=== PATIENT | female | born 2005 | race Caucasian/White ===

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

== ENCOUNTER 2023-01-04 20:48 | Outpatient (REF) | payer BC, SELFPAY ==
[2023-01-04 23:13] LABS: Abs Immature Grans 0.02 10^3/uL (0.0-0.06); HCT 39.6 % (36.0-46.0); HGB 12.2 g/dL (11.2-15.7); MCH 25.4 pg (27.0-33.0); MCHC 30.8 % (32.0-36.0); MCV 82 fL (80-95); MPV 11.1 fL (8.0-11.0); Platelet Count 204 10^3/uL (130-400); RBC 4.81 10^6/uL (3.93-5.22); RDW 15.8 % (11.7-14.6); WBC 10.18 10^3/uL (4.4-10.8)
[2023-01-04 23:29] LABS: ESR 19 mm/hr (0-20)
[2023-01-04 23:33] LABS: Mono Screening Negative (Negative)
[2023-01-04 23:40] LABS: ALT 303 U/L (14-59); AST 184 U/L (15-37); Albumin 3.8 g/dL (3.4-5.0); Alkaline Phosphatase 202 U/L (46-116); Anion Gap 8.7 mmol/L (3-11); BUN 6 mg/dL (7-18); Bilirubin, Total 0.8 mg/dL (0.2-1.0); C-Reactive Protein 0.36 mg/dL (0.0-0.3); CO2 26.3 mmol/L (21.0-32.0); CREATININE 0.7 mg/dL (0.55-1.02); Calcium 8.6 mg/dL (8.5-10.1); Chloride 104 mmol/L (98-107); Estimated GFR 127.69 (mL/min/1.73m2); Glucose 116 mg/dL (74-106); Potassium 4.2 mmol/L (3.5-5.1); Sodium 139 mmol/L (136-145); TSH (W/Ref FT4) 1.61 uIU/mL (0.52-4.13); Total Protein 7.9 g/dL (6.4-8.2)
[2023-01-05 00:03] LABS: Absolute Lymphocyte Count 7.13 10^3/uL (1.2-3.4); Absolute Neutrophil Count 2.24 10^3/uL (1.2-6.7); Atypical Lymphocytes % 18
[2023-01-05 00:04] LABS: Absolute Monocyte Count 0.81 10^3/uL (0.1-0.8); Diff Comment Manual Differential; RBC Morphology Normal
[2023-01-07 09:48] LABS: Lyme Ab w Rflx to Lyme Confirm Negative (Negative)
[2023-01-07 10:15] LABS: Syphilis Serology (RPR) Positive (Negative)
[2023-01-09 11:31] LABS: RPR w/Reflex Negative (Negative)
[2023-01-15 15:44] LABS: Syphilis Ab, TP-PA Negative (Negative)
== END 2023-01-04 20:49 | disposition home or self-care (01) ==
LOC: NCHCN 20:48
PROVIDERS: PCP Family Medicine; Visit Provider Nurse Practitioner Family
DX: R50.9 Fever, unspecified (principal); R53.83 Other fatigue; R59.0 Localized enlarged lymph nodes
CPT/HCPCS: 0064U; 80053; 85652; 86780; 84443; 85025; 86140; 86308; 86592; 86618; 87480; 87510; 87660

== ENCOUNTER 2023-01-19 11:12 | Outpatient (CLI) | payer BC, SELFPAY ==
[2023-01-19 11:40] LABS: HCT 34.2 % (36.0-46.0); HGB 10.9 g/dL (11.2-15.7); MCHC 31.9 % (32.0-36.0); MCV 82 fL (80-95); MPV 9.8 fL (8.0-11.0); Platelet Count 194 10^3/uL (130-400); RBC 4.19 10^6/uL (3.93-5.22); RDW 14.5 % (11.7-14.6); RDW-SD 42.9 fL; WBC 3.97 10^3/uL (4.4-10.8)
[2023-01-19 12:34] LABS: ALT 30 U/L (14-59); AST 24 U/L (15-37); Albumin 3.7 g/dL (3.4-5.0); Alkaline Phosphatase 98 U/L (46-116); Anion Gap 6.6 mmol/L (3-11); BUN 8 mg/dL (7-18); Bilirubin, Direct 0.1 mg/dL (0.0-0.2); Bilirubin, Total 0.5 mg/dL (0.2-1.0); CO2 27.4 mmol/L (21.0-32.0); CREATININE 0.7 mg/dL (0.55-1.02); Calcium 8.4 mg/dL (8.5-10.1); Chloride 107 mmol/L (98-107); Estimated GFR 127.69 (mL/min/1.73m2); Glucose 92 mg/dL (74-106); Potassium 3.9 mmol/L (3.5-5.1); Sodium 141 mmol/L (136-145); Total Protein 7.3 g/dL (6.4-8.2)
[2023-01-20 11:05] LABS: Lyme Ab w Rflx to Lyme Confirm Negative (Negative)
[2023-01-20 13:30] LABS: HIV-1/2 Ag & Ab Screen Negative (Negative)
[2023-01-20 21:43] LABS: CMV DNA Detect/Quant, P Undetected IU/mL (Undetected)
[2023-01-21 11:39] LABS: CMV Ab, IgG Negative (Negative); CMV Ab, IgM Negative (Negative); Toxoplasma Ab, IgG Negative (Negative); Toxoplasma Ab, IgM Negative (Negative); Toxoplasma IgG Value <3 IU/mL
[2023-01-21 11:44] LABS: EBV EA IgG Negative (Negative)
[2023-01-21 13:09] LABS: TB Interpretation Negative (Negative); TB1 Ag minus Nil 0.01 IU/ml; TB2 Ag minus Nil 0.02 IU/mL
[2023-01-22 00:34] LABS: Anaplasma phagocytophilum Negative (Negative); B. miyamotoi PCR Negative (Negative); Babesia divergens/MO-1 Negative (Negative); Babesia duncani Negative (Negative); Babesia microti Negative (Negative); Ehrlichia chaffeensis Negative (Negative); Ehrlichia ewingii/canis Negative (Negative); Ehrlichia muris eauclairensis Negative (Negative)
== END 2023-01-19 11:13 | disposition home or self-care (01) ==
LOC: LBO 11:19
PROVIDERS: PCP Family Medicine; Visit Provider Nurse Practitioner Family
DX: R63.0 Anorexia (principal); R50.9 Fever, unspecified; R53.83 Other fatigue; R59.0 Localized enlarged lymph nodes
CPT/HCPCS: 36415; 80053; 80076; 85027; 86663; 87389; 87798; 86480; 86618; 86644; 86645; 86777; 86778; 87497